=== PATIENT | female | born 1955 | race Caucasian/White ===

== ENCOUNTER → 2024-12-13 13:55 | Outpatient (REF) | payer MEDICARE, BC, SELFPAY | LOC: RAD 13:55 | PROVIDERS: ATTENDING PHYSICIAN Student in an Organized Health Care Education/Training Program; FAMILY PHYSICIAN Internal Medicine | DX: I35.0 Nonrheumatic aortic (valve) stenosis (principal) | CPT/HCPCS: 74174; 75572; Q9967 ==

== ENCOUNTER 2024-12-30 06:03 | Day surgery (SDC) | payer MEDICARE, BC, SELFPAY ==
[2024-12-30] VITALS (22 sets, daily range): BP systolic 105–176; BP diastolic 58–102; BMI 20.4
[2024-12-30 06:54] LABS: Glucose - Point of Care 126 mg/dl (70-99)
--- NOTE | 2024-12-30 09:08 | ITS.CL.PN ---
[facility] - Procedure Note
Procedure
Procedure Note:
CARDIAC CATHETERIZATION REPORT
Date of Procedure: 12/30/2024
Referring: Mario Garcia MD
Indication: symptomatic severe aortic valve stenosis
PROCEDURE(S)
1. right heart catheterization
2. left heart catheterization
3. coronary angiography
ACCESS
1. 6F right radial artery (closure: radial band)
2. 5F right antecubital vein (closure: manual hemostasis)
CATHETERS
1. 5F [place]
2. 5F [place] pigtail dual lumen catheter
3. 6F JR4
4. 6F JL3.5
MODERATE SEDATION: 35 minutes of moderate sedation was utilized. An independent medical pathologist was present to assist with and help manage the patient's level of consciousness and physiologic status.
HEMODYNAMIC DATA
LV 163/12 (EDP 21) mmHg
AO 153/73 (mean 108) mmHg
RA 11 mmHg
RV 54/6 (EDP 13) mmHg
PA 55/26 (mean 39) mmHg
PCWP 24 mmHg
SaO2 95.7%
SvO2 69.7%
Hb 13.4 g/dL
CO/CI 3.68/2.64 L/min/m2
SVR 2107 dsc*-5
PVR 4.1 [place] units
Valve study (dual lumen catheter): MG 14.31 at HR 89 bpm giving SVI of 29.7 mL/m2 and valve area of 0.83 (indexed 0.60 cm2/m2)
Valve study (single lumen pullback): MG 19.89 mmHg at HR 85 bpm giving SVI of 31.1 mL/m2 and valve area 0.76 cm2 (indexed 0.55 cm2/m2)
CORONARY ANGIOGRAPHY
Dominance: right
LM: large vessel with no disease
LAD: large vessel giving rise to an early septal cascade, small branching D1, and moderate caliber branching D2. There is no coronary artery disease.
LCx: moderate caliber vessel giving rise to two small OM branches. There is no coronary artery disease.
RCA: moderate caliber vessel giving rise to a moderate caliber RPDA and two small RPL branches. There is no coronary artery disease.
RADIATION: dose 107 mGy; DAP 9.6 Gy*cm2; fluoroscopy time 8.7 min
CONCLUSIONS
1. normal coronary arteries in a right dominant system
2. 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
3. valve study with low flow, very low gradient, moderate-severe aortic valve stenosis (severe by valve area but indexed valve area is borderline severe and gradients very low)
RECOMMENDATION: overall impression is that the aortic valve stenosis is not severe enough to explain the patient's degree of symptoms and other factors (HFpEF, pHTN, Afib) should be addressed prior to consideration of valve intervention. Recommend
serial echo q6 months to follow progression of valve stenosis.
Copy to: Dr. Mario Garcia MD (commission auditor); Dr. Clark Salas MD (PCP)
Signed: Yaya Perez MD, PhD
[2024-12-30] MEDS: NSS 1000 IV (12:06)
--- NOTE | 2024-12-30 15:23 | PTCARENOTE ---
1055: Pt observed coughing/choking on omlette. Anesthesia paged stat to BS if needed. Pt positioned in high fowlers; oropharynx and mouth suctioned multiple times for eggs and mucus. SPO2 remained 96-99% during event. CXR obtained post @ 1125.
Pt moved from stretcher to recliner chair per her request and comfort. Pt savana all well. Procedure access sites remain intact and w/o bleeding or hematoma. Will continue to monitor.
--- NOTE | 2024-12-30 15:51 | PTCARENOTE ---
1330: Per JITENDRA Morales/Dr. Perez, CXR WNL and ok to D/C pt to home. Pt tolerating all well. All questions addressed.
== END 2024-12-30 14:00 | disposition home or self-care (01) ==
LOC: CATH 06:03
PROVIDERS: ATTENDING PHYSICIAN Student in an Organized Health Care Education/Training Program; FAMILY PHYSICIAN Chiropractor Radiology; OTHER PHYSICIAN Internal Medicine Cardiovascular Disease
DX: I35.0 Nonrheumatic aortic (valve) stenosis (principal); I27.20 Pulmonary hypertension, unspecified; I48.0 Paroxysmal atrial fibrillation; Z79.01 Long term (current) use of anticoagulants; Z79.890 Hormone replacement therapy; Z79.899 Other long term (current) drug therapy
CPT/HCPCS: 71045; 82962; 93460; 99152; 99153; C1769; C1894; Q9967

== ENCOUNTER → 2025-06-15 11:17 | Outpatient (REF) | payer MEDICARE, BC, SELFPAY ==
[2025-06-15 13:03] LABS: Hematocrit 42.5 % (37.0-47.0); Hemoglobin 13.6 g/dL (12.0-16.0); Mean Corp Hgb Conc. 32.0 g/dL (33.0-37.0); Mean Corpuscular Volume 105.7 fL (81.0-99.0); Nucleated Red Blood Cells % 0 %; Platelet Count 227 10^3/uL (130-400); Red Cell Dist. Width 13.9 % (11.5-14.5)
[2025-06-15 13:43] LABS: ALT (SGPT) 29 U/L (0-35); AST (SGOT) 29 U/L (14-36); Albumin 4.4 g/dl (3.5-5.0); Alkaline Phosphatase 51 U/L (38-126); Blood Urea Nitrogen 42 mg/dl (7-17); Calcium 9.7 mg/dl (8.4-10.2); Carbon Dioxide 29 mmol/L (22-30); Chloride 102 mmol/L (98-107); Glucose 76 mg/dl (70-99); Potassium 4.5 mmol/L (3.5-5.1); Sodium 137 mmol/L (135-145); Total Protein 7.6 g/dl (6.3-8.2); eGFR > 60.00
== END ==
LOC: SDSPAT 11:17
PROVIDERS: ATTENDING PHYSICIAN Internal Medicine Cardiovascular Disease; FAMILY PHYSICIAN Internal Medicine; OTHER PHYSICIAN Internal Medicine Cardiovascular Disease
DX: I48.0 Paroxysmal atrial fibrillation (principal)
CPT/HCPCS: 36415; 80053; 85025; 93005